=== PATIENT | female | born 1985 | race Caucasian/White ===

== ENCOUNTER 2017-05-02 04:28 | Inpatient (IN) | payer BC ==
[2017-05-02] MEDS ORDERED: CITRIC ACID/SODIUM CITRATE SOL PO SCH (04:45)
[2017-05-02] MEDS: LACTATED RINGERS 1,000 ML IV SCH ×6 (05:06→23:30)
[2017-05-02] MEDS ORDERED: CEFAZOLIN SODIUM 1 GM PDS ONE ×2 (05:26→12:14)
[2017-05-02] MEDS ORDERED: PHENYLEPHRINE HYDROCHLORIDE 10 MG/ML SOL ONE (05:26)
[2017-05-02] MEDS ORDERED: ONDANSETRON HCL 4 MG/2 ML SOL ONE (05:26)
[2017-05-02] MEDS ORDERED: OXYTOCIN 10000 MU/ML SOL ONE ×2 (05:26→07:27)
[2017-05-02] MEDS: CEFAZOLIN (PREMIX) 1 GM 1 GM/50 ML SOL IV SCH ×2 (05:55→12:21)
[2017-05-02] MEDS ORDERED: DEXAMETHASONE 20 MG/5 ML (4 MG/ML SOL) ONE (07:10)
[2017-05-02] MEDS ORDERED: LACTATED RINGERS 1,000 ML with OXYTOCIN 10000 MU/ML 20 MU IV ONE (07:15)
[2017-05-02] MEDS ORDERED: BUPIVACAINE/EPI 0.25% 50 ML SOL ONE (08:01)
[2017-05-02] MEDS ORDERED: KETOROLAC TROMETHAMINE 30 MG/ML SOL ONE (08:50)
[2017-05-02] MEDS ORDERED: METHYLERGONOVINE MALEATE 0.2 MG TAB PO PRN (10:37)
[2017-05-02] MEDS ORDERED: FLEET ENEMA PR PRN (10:37)
[2017-05-02] MEDS ORDERED: BISACODYL 10 MG SUP PR PRN (10:37)
[2017-05-02] MEDS ORDERED: TEMAZEPAM 15MG 15 MG CAP PO PRN (10:37)
[2017-05-02] MEDS ORDERED: WITCH HAZEL 1 EA PAD TOP PRN (10:37)
[2017-05-02] MEDS ORDERED: ONDANSETRON HCL 4 MG/2 ML SOL IV PRN (10:37)
[2017-05-02] MEDS ORDERED: BENZOCAINE/MENTHOL 1 SPR TOP PRN (10:37)
[2017-05-02] MEDS ORDERED: DIPHENHYDRAMINE 25 MG CAP PO PRN (10:37)
[2017-05-02] MEDS: APAP/HYDROCODONE 325/5 TAB PO PRN ×3 (12:48→20:19)
[2017-05-02] MEDS: SODIUM CHLORIDE 0.9% FLUSH 10 ML SOL IV PRN (16:45)
[2017-05-02] MEDS: KETOROLAC TROMETHAMINE 30 MG/ML SOL IV PRN ×2 (16:46→22:38)
[2017-05-02] MEDS: DOCUSATE SODIUM 100 MG SGL PO SCH (20:42)
[2017-05-02 20:45] LABS: APPEARANCE,URINE Clear; BILIRUBIN,URINE NEGATIVE (NEGATIVE); COLOR,URINE Light yellow; GLUCOSE, URINE (UA) NEGATIVE (NEGATIVE); KETONES,URINE NEGATIVE (NEGATIVE); LEUKOCYTE ESTERASE ,URINE NEGATIVE (NEGATIVE); NITRATE,URINE NEGATIVE (NEGATIVE); OCCULT BLOOD,URINE NEGATIVE (NEG-TRACE); PH,URINE 7.5; UROBILINOGEN,URINE 0.2 (0.2-1.0 EU)
[2017-05-02 20:56] LABS: RBC,URINE NEGATIVE (0-3AV/HPF); WBC,URINE NEGATIVE (0-5AV/HPF)
[2017-05-03] MEDS: APAP/HYDROCODONE 325/5 TAB PO PRN ×8 (02:59→23:05)
[2017-05-03] MEDS: KETOROLAC TROMETHAMINE 30 MG/ML SOL IV PRN (06:16)
[2017-05-03] MEDS: SODIUM CHLORIDE 0.9% FLUSH 10 ML SOL IV PRN (07:27)
[2017-05-03] MEDS: DOCUSATE SODIUM 100 MG SGL PO SCH ×3 (08:53→20:20)
[2017-05-03] MEDS: FERROUS GLUCONATE 324 MG TAB PO SCH ×3 (10:12→20:20)
[2017-05-03] MEDS: LACTATED RINGERS 1,000 ML IV SCH (11:23)
[2017-05-03] MEDS: IBUPROFEN 600 MG TAB PO PRN ×2 (12:12→18:24)
[2017-05-04] MEDS: IBUPROFEN 600 MG TAB PO PRN ×4 (01:22→22:40)
[2017-05-04] MEDS: APAP/HYDROCODONE 325/5 TAB PO PRN ×4 (01:23→16:55)
[2017-05-04] MEDS ORDERED: FERROUS SULFATE 325 MG TAB ONE (08:36)
[2017-05-04] MEDS: DOCUSATE SODIUM 100 MG SGL PO SCH ×2 (08:57→22:02)
[2017-05-04] MEDS: FERROUS GLUCONATE 324 MG TAB PO SCH ×2 (09:06→22:02)
[2017-05-04 23:20] VITALS: RESP 16
[2017-05-05] MEDS: APAP/HYDROCODONE 325/5 TAB PO PRN ×2 (03:36→08:30)
[2017-05-05 08:19] VITALS: BP 119/77; PULSE 68; TEMP 97; O2SAT 97
[2017-05-05] MEDS: FERROUS GLUCONATE 324 MG TAB PO SCH (08:30)
[2017-05-05] MEDS: IBUPROFEN 600 MG TAB PO PRN (08:30)
[2017-05-05] MEDS: DOCUSATE SODIUM 100 MG SGL PO SCH (08:30)
== END 2017-05-05 10:40 | disposition home or self-care (01) | DRG 540 ==
LOC: OB 04:28 → EDSTATUS 06:00
PROVIDERS: ADMIT Family Medicine; ATTEND Family Medicine
PROC: 10D00Z1 Extraction of Products of Conception, Low, Open Approach (ICD-10-PCS; principal; 2017-05-02 06:00)
DX: O34.219 Maternal care for unspecified type scar from previous cesarean delivery (principal); N85.8 Other specified noninflammatory disorders of uterus; Z3A.39 39 weeks gestation of pregnancy; Z37.0 Single live birth; O90.81 Anemia of the puerperium
CPT/HCPCS: 36415; 59025; 81001; 85018; 99070; J0690; J1100; J1885; J2405; J2590